=== PATIENT | male | born 1995 | race Two or more races ===

== ENCOUNTER 2022-11-24 09:05 | Emergency (ER) | payer SELFPAY ==
[2022-11-24] MEDS ORDERED: Sodium Chloride 0.9% 1,000 ML IV ONE (09:30)
[2022-11-24] MEDS ORDERED: Piperacillin/Tazobactam 4.5 GM in Sodium Chloride 0.9% 100 ML IV ONE ×2 (09:31→10:57)
[2022-11-24] MEDS ORDERED: Morphine 4 MG/ML Syringe IVPUSH ONE (09:31)
[2022-11-24] MEDS ORDERED: Ketorolac 30 MG/ML SDV IVPUSH ONE (09:34)
[2022-11-24 10:02] LABS: BASOPHILS ABSOLUTE AUTO 0.05 K/uL (0.00-0.20); BASOPHILS PERCENT AUTO 0.4 % (0.0-1.0); EOSINOPHILS ABSOLUTE AUTO 0.04 K/uL (0.00-0.45); EOSINOPHILS PERCENT AUTO 0.3 % (0.0-6.0); HEMATOCRIT 39.6 % (42.0-52.0); HEMOGLOBIN 13.5 g/dL (14.0-18.0); IMMATURE GRAN ABSOLUTE AUTO 0.05 K/uL (0.00-0.05); IMMATURE GRAN PERCENT AUTO 0.4 % (0.0-0.4); LYMPHOCYTES ABSOLUTE AUTO 2.08 K/uL (1.00-4.80); LYMPHOCYTES PERCENT AUTO 14.6 % (24.0-44.0); MEAN CORPUSCULAR HEMOGLOBIN 28.2 pg (28.0-32.0); MEAN CORPUSCULAR HGB CONC 34.1 g/dL (32.0-36.0); MEAN CORPUSCULAR VOLUME 82.7 fL (83.0-99.0); MEAN PLATELET VOLUME 8.7 fL (9.4-12.4); MONOCYTES PERCENT AUTO 5.6 % (0.0-8.0); NEUTROPHILS ABSOLUTE AUTO 11.3 K/uL (1.8-7.7); NEUTROPHILS PERCENT AUTO 78.7 % (41.0-71.0); PLATELET COUNT,PLT 365 K/uL (150-400); RED BLOOD CELL COUNT 4.79 M/uL (4.52-5.90); WHITE BLOOD CELL COUNT,WBC 14.27 K/uL (3.9-11.3)
[2022-11-24 10:38] LABS: A/G RATIO 0.9 (0.9-1.6); ALBUMIN 4.2 g/dL (3.4-5.0); BILIRUBIN TOTAL 0.4 mg/dL (0.2-1.0); CALCIUM 8.7 mg/dL (8.5-10.1); CARBON DIOXIDE,CO2 26.7 mmol/L (21.0-32.0); CREATININE 0.8 mg/dL (0.8-1.3); EST CRCL DRUG DOSING (CG) 125.16 mL/min; POTASSIUM,K 3.6 mmol/L (3.5-5.1)
[2022-11-24 10:41] LABS: LACTIC ACID 0.7 mmol/L (0.4-2.0)
[2022-11-24] MEDS ORDERED: Iopamidol 755 MG/ML 500 ML Multipack Bottle IVPUSH STA (11:33)
[2022-11-24] MEDS ORDERED: Lidocaine 1% with EPINEPHrine 1:100,000 20 ML MDV INJECT ONE (12:45)
== END 2022-11-24 13:26 | disposition home or self-care (01) ==
LOC: MW.ED 09:05
DX: K61.0 Anal abscess (principal)
CPT/HCPCS: 36415; 46050; 74177; 80053; 83605; 85025; 96361; 96365; 96375; 99284; J1885; J2270; J2543; J3490; J7030; Q9967; 10060